=== PATIENT | male | born 1995 | race Caucasian/White ===

== ENCOUNTER 2022-10-15 14:23 | Emergency (ER) | payer SELFPAY ==
[2022-10-15 14:30] VITALS: BP 120/84; PULSE 98; RESP 20; TEMP 36.5; O2SAT 99
--- NOTE | 2022-10-15 14:35 | ED.NAVMDI ---
HPI - Nausea/Vomiting/Diarrhea General Chief complaint: Nausea/Vomiting/Diarrhea Stated complaint: Vomiting/Diarrhea Time Seen by Provider: 10/15/22 14:35 Source: patient and RN notes reviewed History of Present Illness HPI Narrative: patient is a 27-year-old male who presents to urgent care with complaints of nausea, vomiting, diarrhea and abdominal distension. Patient states that started few days ago with diarrhea and vomiting started yesterday. 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 Patient was seen at our facility and given azithromycin at that time. Patient never did end up in the emergency room or have his stool samples. States that his symptoms cleared with the azithromycin. Patient denies any fevers. Patient is actively vomiting. No other acute complaints. No acute distress noted. Patient aware of the plan of care. Some parts of this dictation were generated by voice recognition software and may contain typographical and/or grammatical inaccuracies. Related Data Allergies Allergy/AdvReac Type Severity Reaction Status Date / Time No Known Allergies Allergy Verified 10/15/22 14:43 Review of Systems Review of Systems: CONSTITUTIONAL: Denies fever, chills, or sweats. EYES: Denies visual changes, redness, or discharge. ENT: Denies rhinorrhea, congestion, sore throat, or otalgia. CARDIOVASCULAR: Denies chest pain, palpitations, or edema. RESPIRATORY: Denies cough or dyspnea. GASTROINTESTINAL: reports nausea, vomiting diarrhea with lower abdominal distension/bloating GENITOURINARY: Denies dysuria or hematuria. SKIN: Denies rash or itching. MUSCULOSKELETAL: Denies back pain, joint pain, or myalgia. NEUROLOGIC: Denies headache, numbness, or weakness. All other systems reviewed are negative, except as documented in HPI. PMFSH Comments At the time of my signature, I reviewed and agree with the nursing past medical, surgical, social, and family history. There is no relevant family history pertinent to the patient complaint. Exam Narrative: GENERAL: This is a well-nourished, well-developed patient, in no apparent distress. HEAD: normocephalic, atraumatic. EYES: PERRL. Sclera clear/white. Vision is grossly intact. EARS: External ears normal NOSE: External nose normal with no obvious nasal discharge, nares without redness, no rhinorrhea. THROAT: Mucous membranes moist NECK: Neck supple GASTROINTESTINAL: Abdomen soft, diffuse lower abdominal tenderness, reported mild distension. Bowel sounds are hyperactive. active vomiting SKIN: warm, intact with no suspicious lesions or rash, good texture and turgor. NEURO: awake, alert, and oriented to person, place and time. There were no obvious focal neurologic abnormalities. EXTREMITIES: No clubbing, cyanosis, or edema. Course Course Level of Care: Express Care Visit Vital Signs Vital signs: Vital Signs Temperature 97.7 F 10/15/22 14:30 Pulse Rate 98 10/15/22 14:30 Respiratory Rate 20 10/15/22 14:30 Blood Pressure 120/84 10/15/22 14:30 Pulse Oximetry 99 10/15/22 14:30 Oxygen Delivery Room Air 10/15/22 14:30 Temperature 97.7 F 10/15/22 14:30 Pulse Rate 98 10/15/22 14:30 Respiratory Rate 20 10/15/22 14:30 Blood Pressure 120/84 10/15/22 14:30 Pulse Oximetry 99 10/15/22 14:30 Oxygen Delivery Room Air 10/15/22 14:30 reviewed MDM - Nausea/Vomiting/Diarrhea MDM Narrative Medical decision making narrative: advised patient complete the oral antibiotic regimen as prescribed. Use the Reglan approximately 10-15 minutes prior to taking the antibiotic to avoid vomiting. E.d. bland diet for the next 3 days and increase your water intake. Avoid any sugar or caffeinated drinks. Try to avoid carbonation. If he develops any increasing symptoms associated with abdominal pain, persistent nausea / vomiting / diarrhea or fever -go directly to the emergency
== END 2022-10-15 14:55 | disposition home or self-care (01) ==
PROVIDERS: Emergency Provider Nurse Practitioner Family; PCP Emergency Medicine
DX: R19.7 Diarrhea, unspecified (principal)
CPT/HCPCS: 99203; G0463